=== PATIENT | female | born 1995 | race Caucasian/White ===

== ENCOUNTER 2019-12-19 21:37 | Emergency (ER) | payer OTHER ==
--- NOTE | 2019-12-19 22:52 | ER Document Report ---
ED Medical Screen (RME) - General Stated Complaint: CHEST PAIN RAIDIATING DOWN LEFT ARM Time Seen by Provider: 12/19/19 22:46 Mode of Arrival: Wheelchair Information source: Patient Notes: HPI; a 24-year-old female presents to the emergency room complaining of intermittent worsening left-sided chest pain that radiates into her left arm that started earlier today. Describes it as sharp and aching. Denies any nausea, vomiting, no diaphoresis. No cardiac history. Denies any trauma or injury. Patient is left-handed states she does do a lot of lifting at work but did not do anything today. Did not take any medications for her symptoms. PE: Alert and oriented x3. Lungs: Clear to auscultation without rales, rhonchi, wheezes. Heart: Regular rate rhythm without murmurs, rubs, gallops. Chest is nontender to palpation. I have greeted and performed a rapid initial assessment of this patient. A comprehensive ED assessment and evaluation of the patient, analysis of test results and completion of the medical decision making process will be conducted by additional ED providers. I have specifically instructed the patient or family members with the patient to immediately return to any nursing staff should anything change in the patient's condition or with their chief complaint. TRAVEL OUTSIDE OF THE [place] IN LAST 30 DAYS: No Physical Exam - Vital signs Vitals: Temp Pulse Resp BP Pulse Ox 99.1 F 90 19 119/72 98 12/19/19 21:46 12/19/19 21:46 12/19/19 21:46 12/19/19 21:46 12/19/19 21:46 Course - Vital Signs Vital signs: Temp Pulse Resp BP Pulse Ox 99.1 F 90 19 119/72 98 12/19/19 21:46 12/19/19 21:46 12/19/19 21:46 12/19/19 21:46 12/19/19 21:46
--- NOTE | 2019-12-20 00:19 | RADIOLOGY REPORT (SQ) ---
EXAM DESCRIPTION: XR CHEST 2 VIEWS COMPLETED DATE/TME: 12/19/2019 23:49 CLINICAL HISTORY: 24 years, Female, chest pain COMPARISON: None. NUMBER OF VIEWS: 2 TECHNIQUE: 2 views of the chest were obtained. LIMITATIONS: None. FINDINGS: The heart, lungs, and pleural spaces are within normal limits. No bony abnormality is seen. IMPRESSION: Negative study copyright 2010 [employer]- All Rights Reserved
[2019-12-20 00:28] LABS: ABSOLUTE EOSINOPHILS # (AUTO) 0.1 10^3/uL (0.0-0.6); ABSOLUTE LYMPHOCYTES (AUTO) 1.7 10^3/uL (0.5-4.7); ABSOLUTE MONOCYTES (AUTO) 0.4 10^3/uL (0.1-1.4); ABSOLUTE NEUT (AUTO) 2.2 10^3/uL (1.7-8.2); EOSINOPHILS % (AUTO) 3.3 % (0-6); HEMATOCRIT 39.2 % (36.0-47.0); HEMOGLOBIN 13.9 g/dL (12.0-15.5); LYMPHOCYTES % (AUTO) 37.5 % (13-45); MEAN CORPUSCULAR HEMOGLOBIN 32.6 pg (27.0-33.4); MEAN CORPUSCULAR HGB CONC 35.5 g/dL (32.0-36.0); MEAN CORPUSCULAR VOLUME 92 fl (80-97); MONOCYTES % (AUTO) 8.8 % (3-13); PLATELET COUNT 394 10^3/uL (150-450); RED BLOOD COUNT 4.27 10^6/uL (3.72-5.28); RED CELL DISTRIBUTION WIDTH 12.1 % (11.5-14.0); SEGMENTED NEUTROPHILS % (AUTO) 49.4 % (42-78); TOTAL CELLS COUNTED % (AUTO) 100 %; WHITE BLOOD COUNT 4.5 10^3/uL (4.0-10.5)
[2019-12-20 00:56] LABS: ALKALINE PHOSPHATASE 85 U/L (38-126); ANION GAP 9 (5-19); ASPARTATE AMINO TRANSFERASE 26 U/L (14-36); BILIRUBIN,TOTAL 0.2 mg/dL (0.2-1.3); BLOOD UREA NITROGEN 13 mg/dL (7-20); CALCIUM 10.1 mg/dL (8.4-10.2); CARBON DIOXIDE 28 mmol/L (22-30); CHLORIDE 100 mmol/L (98-107); GLUCOSE 101 mg/dL (75-110); POTASSIUM 4.5 mmol/L (3.6-5.0)
--- NOTE | 2019-12-20 04:54 | ER Document Report ---
ED General - General Chief Complaint: Chest Pain Stated Complaint: CHEST PAIN RAIDIATING DOWN LEFT ARM Time Seen by Provider: 12/19/19 22:46 Mode of Arrival: Wheelchair TRAVEL OUTSIDE OF THE [place] IN LAST 30 DAYS: No - HPI Notes: Patient is a 24-year-old female presents emergency department for evaluation of a sharp and left-sided chest pain. Occasionally rates into her left arm. She has had pain like this in the past. She was worked up at [employer] and they told her "it was nothing." It is not brought about by exertion. It is not reliably improved with rest. Nothing seems to change in any way. She denies any associated nausea, shortness of breath, diaphoresis, near syncope. She has no history of PE or DVT, no family history of PE or DVT. She denies any personal history of cancer, recent surgery, recent prolonged immobilization. She is on OCPs, but she does not smoke. - Related Data Allergies/Adverse Reactions: Penicillins Allergy (Verified 12/19/19 22:52) Home Medications: BCP Past Medical History - General Information source: Patient - Social History Smoking Status: Never Smoker Frequency of alcohol use: Rare Drug Abuse: None Family History: Reviewed & Not Pertinent - Past Medical History Cardiac Medical History: Denies: Hx Coronary Artery Disease, Hx DVT, Hx Pulmonary Embolism Pulmonary Medical History: Denies: Hx Asthma, Hx COPD Neurological Medical History: Denies: Hx Cerebrovascular Accident, Hx Seizures Endocrine Medical History: Denies: Hx Diabetes Mellitus Type 1, Hx Diabetes Mellitus Type 2 Renal/ Medical History: Denies: Hx End Stage Renal Disease Malignancy Medical History: Reports: None Review of Systems - Review of Systems Constitutional: No symptoms reported EENT: No symptoms reported Cardiovascular: See HPI Respiratory: No symptoms reported Gastrointestinal: No symptoms reported Genitourinary: No symptoms reported Musculoskeletal: No symptoms reported Skin: No symptoms reported Neurological/Psychological: No symptoms reported -: Yes All other systems reviewed and negative Physical Exam - Vital signs Vitals: Temp Pulse Resp BP Pulse Ox 99.1 F 90 19 119/72 98 12/19/19 21:46 12/19/19 21:46 12/19/19 21:46 12/19/19 21:46 12/19/19 21:46 - Notes Notes: Vital signs reviewed, please refer to chart. Head is normocephalic, atraumatic. Pupils equal round, reactive to light. Neck is supple without meningismus. Heart is regular rate and rhythm. Lungs are clear to auscultation bilaterally. No obvious abnormality noted to inspection of the chest wall. Mild tenderness to palpation, but it does not entirely reproduce the patient's pain. Abdomen is soft, nontender, normoactive bowel sounds throughout. Extremities without cyanosis, clubbing. Posterior calves are nontender. Peripheral pulses are equal. Skin is warm and dry. Patient is awake, alert, neurological exam is n onfocal. Course - Re-evaluation Re-evalutation: 12/20/19 05:01 Patient presents the emergency department for evaluation. She has intermittent sharp chest pain. Her vital signs are unremarkable. Her EKG shows some anterior changes, likely normal variant. Her cardiac enzymes are unremarkable. Her pain is not typical of anginal pain. She has no risk factors for PE or DVT. Patient is to try [id number] medications as needed for her pain. Follow- up with primary care. She is to return to the ED with worsening or new co ncerning symptoms of any sort. - Vital Signs Vital signs: Temp Pulse Resp BP Pulse Ox 99.4 F 71 19 117/63 98 12/20/19 00:51 12/20/19 00:51 12/19/19 21:46 12/20/19 00:51 12/20/19 00:51 - Laboratory Result Diagrams: 12/20/19 00:03 12/20/19 00:03 - Diagnostic Test Radiology reviewed: Image reviewed, Reports reviewed Radiology results interpreted by me: 12/20/19 05:01 Chest X-Ray 12/19/19 22:49 IMPRESSION: Negative study copyright 2011 [employer]- All Rights Reserved - EKG Interpretation by Me Additional EKG results interpreted by me: 12/20/19 05:01 Sinus mechanism with rate of 72 bpm. Normal axis and intervals. T wave inversions anteriorly concerning for ischemia versus normal variant in a young female. No old studies available for comparison. Discharge - Discharge Clinical Impression: Chest pain Qualifiers: Chest pain type: unspecified Qualified Code(s): R07.9 - Chest pain, unspecified Condition: Stable Disposition: HOME, SELF-CARE Instructions: Chest Pain of Unclear Cause ([facility]) Additional Instructions: No clear cause was identified for your chest pain today. Your blood work, EKG, and chest x-ray did not show any signs of a concerning emergency at this time. Try [id number] medications as needed for your pain. Follow-up with your primary care provider next week. Return to the emergency department if you develop worsening or new concerning symptoms of any sort. Forms: Return to Work
[2019-12-20 05:10] VITALS: BP 117/77
--- NOTE | 2019-12-21 00:32 | EKG REPORT ---
SEVERITY:- ABNORMAL ECG - SINUS RHYTHM NONSPECIFIC T ABNORMALITIES, ANTERIOR LEADS : Confirmed by: Chloe Roque 21-Dec-2019 00:31:35
== END 2019-12-20 05:05 | disposition home or self-care (01) ==
LOC: ER 21:37
DX: R07.9 Chest pain, unspecified (principal); Z79.899 Other long term (current) drug therapy
CPT/HCPCS: 36415; 71046; 80053; 84484; 84703; 85025; 93005; 93010; 99285